=== PATIENT | female | born 1980 | race Caucasian/White ===

== ENCOUNTER 2016-09-03 15:28 | Inpatient (IN) | payer BC ==
[~2016-09-03] VITALS: Ht 165.1 cm; Wt 80.0 kg
[2016-09-03 15:45] VITALS: BP 116/72
[2016-09-03] MEDS ORDERED: PREN1TAB60 PO (16:20)
[2016-09-03] MEDS ORDERED: LEVO150T5 PO (16:21)
[2016-09-03] MEDS ORDERED: LIOT5TAB3 PO (16:21)
[2016-09-03] MEDS ORDERED: OXYTOCIN 30U/ 0.9% NaCL 500ML 500 ML IV PRN (20:38)
[2016-09-03] MEDS: D5%-LACTATED RINGERS 1,000 ML IV SCH (20:38)
[2016-09-03] MEDS ORDERED: OXYTOCIN 30U/ 0.9% NaCL 500ML 500 ML IV ONE (20:38)
[2016-09-03] MEDS ORDERED: LIDOCAINE 1%, 20ML ONE (20:51)
[2016-09-03] MEDS ORDERED: MISOPROSTOL 200 MCG TABLET ONE (20:51)
[2016-09-03] MEDS ORDERED: OXYTOCIN 30U/ 0.9% NaCL 500ML 500 ML ONE (20:51)
[2016-09-03] MEDS ORDERED: NEWBORN KIT ONE (20:51)
[2016-09-03] MEDS ORDERED: FENTANYL PF 100 MCG/2ML IVPush PRN (21:00)
[2016-09-03] MEDS ORDERED: ONDANSETRON 2MG/ML, 2ML IVPush PRN (21:00)
[2016-09-03] MEDS ORDERED: ALUMINUM/MAG/SIMETHICONE 30 ML UDC PO PRN (21:00)
[2016-09-03] MEDS ORDERED: CALCIUM CARBONATE 500 MG TAB.CHEW PO PRN (21:00)
[2016-09-03] MEDS ORDERED: SODIUM CITRATE/CITRIC ACID 30 ML UDC PO PRN (21:00)
[2016-09-04] MEDS: LACTATED RINGERS 1,000 ML IV SCH ×2 (02:47→04:38)
[2016-09-04] MEDS ORDERED: FENTANYL/BUPIV./NS/PF 250 ML EPIDCONT ONE (03:04)
[2016-09-04] MEDS ORDERED: LIDOCAINE/PF 1.5%-EPI 1:200K, 30ML ONE (03:04)
[2016-09-04] MEDS: D5%-LACTATED RINGERS 1,000 ML IV SCH (04:38)
[2016-09-04] MEDS: OXYTOCIN 30U/ 0.9% NaCL 500ML 500 ML IV SCH ×5 (06:15→16:15)
[2016-09-04] MEDS ORDERED: MISOPROSTOL 200 MCG TABLET PR PRN (06:30)
[2016-09-04] MEDS ORDERED: HYDROcodone/APAP 5/325 TABLET PO PRN ×2 (06:30)
[2016-09-04] MEDS ORDERED: METHYLERGONOVINE 0.2 MG/ML IM PRN (06:30)
[2016-09-04] MEDS ORDERED: ACETAMINOPHEN 325 MG TABLET PO PRN ×2 (06:30)
[2016-09-04] MEDS ORDERED: FENTANYL/BUPIV./NS/PF 250 ML EPIDCONT SCH (07:44)
[2016-09-04] MEDS ORDERED: LACTATED RINGERS 1,000 ML IV SCH (07:44)
[2016-09-04] MEDS ORDERED: LACTATED RINGERS 1,000 ML IVBOLUS PRN (08:00)
[2016-09-04] MEDS ORDERED: EPHEDRINE 50 MG/ML, 1ML IVPush PRN (08:00)
[2016-09-04] MEDS ORDERED: NALOXONE 0.4 MG/ML, 1ML IVPush PRN (08:00)
[2016-09-04 08:17] VITALS: BP 105/58
[2016-09-04] MEDS: PRENATAL VIT/IRON/FA 1 EACH TABLET PO SCH (09:00)
[2016-09-04 12:56] VITALS: BP 112/55
[2016-09-04] MEDS: IBUPROFEN 600 MG TABLET PO PRN ×2 (14:29→20:52)
[2016-09-04 16:14] VITALS: BP 116/68
[2016-09-04 20:00] VITALS: BP 105/59
[2016-09-04] MEDS: DOCUSATE 100 MG CAPSULE PO PRN (20:52)
[2016-09-05 01:45] VITALS: BP 128/80
[2016-09-05] MEDS: OXYTOCIN 30U/ 0.9% NaCL 500ML 500 ML IV SCH (02:15)
[2016-09-05] MEDS: IBUPROFEN 600 MG TABLET PO PRN ×2 (03:22→09:32)
[2016-09-05 07:45] VITALS: BP 129/91
[2016-09-05] MEDS: PRENATAL VIT/IRON/FA 1 EACH TABLET PO SCH (09:01)
[2016-09-05] MEDS: DOCUSATE 100 MG CAPSULE PO PRN (09:01)
[2016-09-05] MEDS ORDERED: IBUP-1222 PO (10:01)
== END 2016-09-05 11:49 | disposition home or self-care (01) | DRG 775 ==
LOC: LDOP 15:28 → OBSVTOIN 17:39 → EDIP 17:39 → LDIP 20:49 → 2NW 09-04 08:08
PROVIDERS: ADMIT Obstetrics & Gynecology; ATTEND Obstetrics & Gynecology
PROC: 10907ZC Drainage of Amniotic Fluid, Therapeutic from Products of Conception, Via Natural or Artificial Opening (ICD-10-PCS; principal; 2016-09-04)
PROC: 10E0XZZ Delivery of Products of Conception, External Approach (ICD-10-PCS; 2016-09-04)
PROC: 0HQ9XZZ Repair Perineum Skin, External Approach (ICD-10-PCS; 2016-09-04)
PROC: 3E0R3CZ (ICD-10-PCS; 2016-09-04)
PROC: 00HU33Z Insertion of Infusion Device into Spinal Canal, Percutaneous Approach (ICD-10-PCS; 2016-09-04)
DX: O69.81X0 Labor and delivery complicated by cord around neck, without compression, not applicable or unspecified (principal); Z37.0 Single live birth; O70.0 First degree perineal laceration during delivery; Z3A.37 37 weeks gestation of pregnancy
CPT/HCPCS: 36415; 85025; 86850; 86900; J2590; J3010; J7120

== ENCOUNTER 2016-12-30 09:50 | Day surgery (SDC) | payer BC ==
[~2016-12-30] VITALS: Ht 160 cm; Wt 70.0 kg
[~2016-12-30 09:50] MED LIST: BUPIVACAINE/PF 0.25% ONE; EPINEPHRINE 1 MG/ML, 1ML ONE; IBUP-1222 PO; LEVO150T5 PO; LIOT5TAB3 PO; PREN1TAB60 PO; SILVER NITRATE STICK TP ONE
[2016-12-30 10:20] LABS: HCG UR LOT HCG7030192
[2016-12-30 10:25] VITALS: BP 121/77
[2016-12-30 10:28] LABS: HCG UR OBC PASS
[2016-12-30] MEDS ORDERED: LACTATED RINGERS 1,000 ML IV SCH (12:00)
[2016-12-30] MEDS ORDERED: FENTANYL PF 100 MCG/2ML ONE (12:09)
[2016-12-30] MEDS ORDERED: MIDAZOLAM 1 MG/ML, 2ML ONE (12:09)
[2016-12-30] MEDS ORDERED: SUCCINYLCHOLINE 20 MG/ML, 10ML ONE (12:13)
[2016-12-30] MEDS ORDERED: ONDANSETRON 2MG/ML, 2ML ONE ×2 (12:13)
[2016-12-30] MEDS ORDERED: DEXAMETHASONE 4 MG/ML, 1ML ONE ×2 (12:13)
[2016-12-30] MEDS ORDERED: PROPOFOL 10 MG/ML, 20ML ONE (12:13)
[2016-12-30] MEDS ORDERED: CEFAZOLIN 1,000 MG ONE ×2 (12:13)
[2016-12-30] MEDS ORDERED: LABETALOL 5MG/ML, 20ML IV PRN (12:30)
[2016-12-30] MEDS ORDERED: ALBUTEROL SULFATE 2.5 MG/3 ML NPPB PRN (12:30)
[2016-12-30] MEDS ORDERED: hydrALAzine 20 MG/ML, 1ML IV PRN (12:30)
[2016-12-30] MEDS ORDERED: HYDROmorphone 1 MG/ML, 1ML IV PRN (12:30)
[2016-12-30] MEDS ORDERED: PROMETHAZINE 25 MG/ML, 1ML IV PRN (12:30)
[2016-12-30] MEDS ORDERED: OXYcodone 5 MG/5 ML ORAL.SOL UDC PO PRN (12:30)
[2016-12-30] MEDS ORDERED: ONDANSETRON 2MG/ML, 2ML IVPush PRN (12:30)
[2016-12-30] MEDS ORDERED: ACETAMINOPHEN 325 MG TABLET PO PRN (12:30)
[2016-12-30] MEDS ORDERED: MIDAZOLAM 1 MG/ML, 2ML IV PRN (12:30)
[2016-12-30] MEDS ORDERED: MEPERIDINE/PF 25MG/0.5ML IVPush PRN (12:30)
[2016-12-30] MEDS ORDERED: FENTANYL PF 100 MCG/2ML IV PRN (12:30)
[2016-12-30] MEDS ORDERED: NEOSTIGMINE 1 MG/ML, 10ML ONE (12:59)
[2016-12-30] MEDS ORDERED: GLYCOPYRROLATE 0.4 MG/2 ML, 2ML ONE (12:59)
[2016-12-30] MEDS ORDERED: NALOXONE 0.4 MG/ML, 1ML ONE (13:02)
[2016-12-30] MEDS ORDERED: OXYcodone 5 MG/5 ML ORAL.SOL UDC ONE (13:37)
[2016-12-30] MEDS ORDERED: ACETAMINOPHEN 650 MG/20.3 ML UDC ONE (13:37)
[2016-12-30] MEDS ORDERED: KETOROLAC 30 MG/1 ML ONE (15:48)
[2016-12-30] MEDS ORDERED: ROCURONIUM 10 MG/ML ONE (15:48)
== END 2016-12-30 16:10 ==
LOC: OUT 09:50
PROVIDERS: ATTEND Obstetrics & Gynecology
DX: Z30.2 Encounter for sterilization (principal); E03.9 Hypothyroidism, unspecified; G43.909 Migraine, unspecified, not intractable, without status migrainosus; Z87.39 Personal history of other diseases of the musculoskeletal system and connective tissue; Z88.0 Allergy status to penicillin; Z88.1 Allergy status to other antibiotic agents
CPT/HCPCS: 36415; 58670; 81025; 86850; 86900; 88302; J0171; J0330; J0690; J1100; J1885; J2250; J2310; J2405; J2704; J2710; J3010; J3490